=== PATIENT | male | born 1950 | race Caucasian/White ===

== ENCOUNTER 2019-01-17 17:57 | Day surgery (SDC) | payer MEDICARE | END 2019-01-18 18:48 | disposition home or self-care (01) | LOC: SDC 17:57 | PROVIDERS: ATTEND Ophthalmology | PROC: 08DJ3ZZ Extraction of Right Lens, Percutaneous Approach (ICD-10-PCS; principal; 2019-01-17) | DX: H40.20X0 Unspecified primary angle-closure glaucoma, stage unspecified (principal); H52.01 Hypermetropia, right eye; H26.9 Unspecified cataract; Z79.899 Other long term (current) drug therapy; Z88.2 Allergy status to sulfonamides ==